=== PATIENT | male | born 1955 | race Hispanic/Latino ===

== ENCOUNTER 2019-09-03 17:25 | Inpatient (IN) | payer BC, OTHER ==
[~2019-09-03] VITALS: Ht 172.7 cm; Wt 104.1 kg
[2019-09-03 19:31] VITALS: BP 139/76
[2019-09-03] MEDS ORDERED: ALBUTEROL/IPRATROPIUM 3 ML NEB NEB PRN (19:45)
[2019-09-03] MEDS ORDERED: ACETAMINOPHEN 325 MG TAB PO PRN (19:45)
[2019-09-03] MEDS ORDERED: ONDANSETRON HCL INJ 2MG/ML 2ML 2 MG/ML VIAL IV PRN (19:45)
[2019-09-03] MEDS ORDERED: NITROGLYCERIN 0.4 MG SUBL SL PRN (20:00)
[2019-09-03] MEDS ORDERED: MORPHINE SULFATE 5 MG/ML VIAL IV PRN (20:00)
[2019-09-03 20:31] LABS: BASOPHILS # (AUTO) 0.1 (0.0-0.1); BASOPHILS % 0.5 % (0.0-1.0); EOSINOPHILS # (AUTO) 0.3 (0.0-0.4); EOSINOPHILS % 2.8 % (0.0-6.0); HEMOGLOBIN 15.9 g/dL (14.0-18.0); LYMPHOCYTES # (AUTO) 2.8 (1.0-3.2); LYMPHOCYTES % 29.4 % (18.0-39.1); MEAN CORPUSCULAR HEMOGLOBIN 29.9 pg (28-32); MEAN CORPUSCULAR HGB CONC 35.3 g/dL (31-35); MEAN CORPUSCULAR VOLUME 84.7 fL (81-99); MONOCYTES # (AUTO) 0.7 (0.2-0.8); MONOCYTES % 7.9 % (4.4-11.3); NEUTROPHILS # (AUTO) 5.6 (2.1-6.9); NEUTROPHILS % 59.1 % (38.7-80.0); PLATELET COUNT 176 x10e3/uL (140-360); RED BLOOD COUNT 5.31 x10e6/uL (4.3-5.7); RED CELL DISTRIBUTION WIDTH 12.2 % (11.7-14.4)
[2019-09-03 20:50] VITALS: BP 139/76
[2019-09-03 20:50] LABS: ANION GAP 13.5 mmol/L (8-16); BLOOD UREA NITROGEN 17 mg/dL (7-26); BUN/CREATININE RATIO 21 (6-25); CARBON DIOXIDE 25 mmol/L (22-29); CHLORIDE 100 mmol/L (98-107); CHOL/HDL RATIO 8.9 (3.9-4.7); CHOLESTEROL 232 MD/DL (0-199); CREATININE, SERUM 0.81 mg/dL (0.72-1.25); EST GLOMERULAR FILTRATION RATE > 60 ML/MIN (60-); GLUCOSE 199 mg/dL (74-118); HDL CHOLESTEROL 26 MG/DL (40-60); POTASSIUM 3.5 mmol/L (3.5-5.1); SODIUM 135 mmol/L (136-145); TRIGLYCERIDES 747 MG/DL (0-149)
--- NOTE | 2019-09-03 20:50 | NUR ---
PATIENT AMBULATED IN DIRECTLY TO HIS ROOM WITH IS AOX4, NO SIGNS OF DISTRESS NOTED. FAMILY MEMBERS ARE AT BEDSIDE AND PATIENT VOICES PAIN AT A LEVEL OF 4 IN HIS RIGHT CHEST. PATIENT CURRENTLY HAS NO IV ACCESS AND WAS TOLD THAT ONE WILL BE STARTED PROMPTLY. BED IS IN LOWEST POSITION, BOTH SIDE RAILS ARE UP, CALL LIGHT WITHIN EASY REACH, WILL CONTINUE TO MONITOR.
[2019-09-03 21:10] LABS: THYROID STIMULATING HORMONE 3.085 uIU/mL (0.350-4.940)
[2019-09-03] MEDS ORDERED: B-121000 MC1 PO (21:37)
[2019-09-03] MEDS ORDERED: GLIPIZIDE5 MG PO (21:37)
[2019-09-03] MEDS ORDERED: MONTELUKAST SOD10 MG PO (21:37)
[2019-09-03] MEDS ORDERED: ASPIRIN81 MG PO (21:37)
[2019-09-03] MEDS ORDERED: LISINOPRIL10 MG PO (21:37)
[2019-09-03] MEDS ORDERED: AMLODIPINE BESYL5 MG PO (21:37)
[2019-09-03] MEDS ORDERED: HYDROCHLOROTHIA25 MG PO (21:37)
[2019-09-03] MEDS ORDERED: ATORVASTATIN CA10 MG PO (21:37)
[2019-09-03] MEDS ORDERED: METOPROLOL TART25 MG PO (21:37)
[2019-09-03] MEDS ORDERED: ZYRTEC10 M3 PO (21:37)
[2019-09-03] MEDS ORDERED: PENTOXIFYLLINE400 MG PO (21:37)
--- NOTE | 2019-09-03 21:45 | NUR ---
PATIENT HAS 20 GAUGE IV PLACED IN LEFT AC, IT IS PATENT AND INTACT AND PATIENT VOICES NO DISCOMFORT.
[2019-09-03] MEDS ORDERED: MORPHINE SULFATE 2 MG/ML SYR 1ML IV PRN (22:00)
[2019-09-03] MEDS: METOPROLOL TARTRATE 25 MG TAB PO SCH (22:20)
[2019-09-03] MEDS: PENTOXIFYLLINE 400 MG TAB CR PO SCH (22:20)
[2019-09-03] MEDS: AMLODIPINE BESYLATE 5 MG TAB PO SCH (22:20)
[2019-09-04] VITALS (7 sets, daily range): BP systolic 151–190; BP diastolic 72–87
[2019-09-04] MEDS: ALBUTEROL/IPRATROPIUM 3 ML NEB NEB SCH ×4 (01:00→20:00)
--- NOTE | 2019-09-04 01:57 | Diagnostic Imaging Report ---
EXAM: CT Chest WITH contrast (PE Protocol) INDICATION: Dyspnea, mid chest pain COMPARISON: None TECHNIQUE: Chest was scanned utilizing a multidetector helical scanner from the lung apex through the level of the diaphragm after administration of IV contrast. Thin section reconstructions were obtained with special concentration on the pulmonary arteries. Coronal and sagittal reformations were obtained. Pulmonary embolism protocol was performed. IV CONTRAST: 100 mL of Isovue 370 COMPLICATIONS: None RADIATION DOSE: Total DLP: 570 mGy*cm Estimated effective dose: (DLP x 0.014 x size factor) mSv CTDIvol has been reviewed. It is below the limits set by the Radiation Protocol Committee (RPC). Dose modulation, iterative reconstruction, and/or weight based adjustment of the mA/kV was utilized to reduce the radiation dose to as low as reasonably achievable. FINDINGS: LINES/ TUBES: None. LUNGS AND AIRWAYS: No filling defect is identified within the pulmonary arteries to the segmental level. The lungs are unremarkable. Mild bilateral smooth central bronchial wall thickening. PLEURA: The pleural spaces are clear. HEART AND MEDIASTINUM: The thyroid gland is normal. No suspicious mediastinal, hilar or axillary lymphadenopathy. Mild prominence of bilateral hilar and mediastinal lymph nodes. The heart is normal in size. There is no pericardial effusion. Main pulmonary artery measures 2.4 cm in diameter, within normal limits, and the ascending aorta measures 3.2 cm, within normal limits. Calcifications of the aorta and major branches including the coronary arteries UPPER ABDOMEN: Unremarkable BONES: Degenerative changes in the spine. SOFT TISSUES: Unremarkable. IMPRESSION: 1. Triple vessel coronary artery calcific atherosclerosis. 2. Findings of bronchitis. No consolidations. 3. Mild prominence of hilar and mediastinal lymph nodes may be congestive or reactive. 4. No axillary mass. 5. No pulmonary emboli. Signed by: John Spain DO on 09/04/2019 1:54 AM
[2019-09-04] MEDS ORDERED: IOPAMIDOL 370 MG/ML 200 ML INFUS..BTL INJ ONE (03:09)
[2019-09-04] MEDS ORDERED: SODIUM CHLORIDE 0.9% 50ML 50 ML ONE (03:09)
[2019-09-04] MEDS ORDERED: ASPIRIN 81 MG CHEW TAB PO ONE (06:00)
[2019-09-04 06:54] LABS: CREATINE KINASE MB 2.3 ng/mL (0-5.0)
--- NOTE | 2019-09-04 07:00 | NUR ---
BEDSIDE SHIFT REPORT RECEIVED FROM NIGHT RN. PT DENIES NEEDS AT THIE TIME.
[2019-09-04] MEDS: GLIPIZIDE 5 MG TAB PO SCH (07:30)
[2019-09-04] MEDS: FAMOTIDINE 20 MG TAB PO SCH ×2 (07:30→16:45)
[2019-09-04] MEDS ORDERED: ALBUTEROL SULFATE HFA 8GM INHALATION AEROSOL INH PRN (08:00)
[2019-09-04] MEDS: HYDROCHLOROTHIAZIDE 25 MG TAB PO SCH (09:00)
[2019-09-04] MEDS: ASPIRIN 81 MG CHEW TAB PO SCH (09:00)
[2019-09-04] MEDS: PENTOXIFYLLINE 400 MG TAB CR PO SCH ×2 (09:00→16:45)
[2019-09-04] MEDS: LISINOPRIL 10 MG TAB PO SCH (09:00)
[2019-09-04] MEDS: METOPROLOL TARTRATE 25 MG TAB PO SCH ×2 (09:00→16:46)
--- NOTE | 2019-09-04 09:39 | Consultation ---
DATE OF CONSULTATION: 09/04/2019 Pulmonary Critical Care Consultation CHIEF COMPLAINT: Chest pain and possible neck mass. HISTORY OF PRESENT ILLNESS: The patient is a 63-year-old man. He has a history of intermittent sharp chest pain for about 8 months. He attributes this to installing the ceiling fan several months ago. He went to see the gasoline pump installer as an outpatient and was felt to have some swelling in the right axillary and neck area. He was subsequently admitted and seen by General Surgery. General Surgery felt there was a right neck mass and ordered a CT scan of the neck. PAST MEDICAL HISTORY: 1. Hypertension. 2. Diabetes. PAST SURGICAL HISTORY: 1. Prior left facial surgery. 2. Prior surgery on the right hand. FAMILY HISTORY: History of cancer as well as there is a cerebrovascular accident. SOCIAL HISTORY: The patient smokes about 1 pack a day. He is not a drinker. ALLERGIES: THE PATIENT HAS NO KNOWN DRUG ALLERGIES. REVIEW OF SYSTEMS: The patient is afebrile. The patient does not complain of headache. He does have some swelling in his neck and axillary area. He reports some left-sided chest pain. He has no difficulty breathing. He does not complain of cough. He does not have abdominal pain. He has no nausea or vomiting. PHYSICAL EXAMINATION: VITAL SIGNS: The patient is afebrile. The blood pressure is 188/87 and the saturation is 96%. The pulse is 71. HEENT: Shows no facial swelling or erythema. LYMPHATIC: Shows some possible swelling in the right neck. CARDIAC: Reveals regular rate and rhythm with normal S1, S2. LUNGS: Auscultation of lungs reveals prolonged expiratory phase. There is no wheezing. ABDOMEN: Soft, nontender. There is no rebound or guarding. EXTREMITIES: Show no leg edema or calf tenderness. There is no cyanosis or clubbing. SKIN: Shows no rashes. NEUROLOGICAL: Shows no focal abnormalities. LABORATORY DATA: BUN and creatinine are normal. The other electrolytes are within normal limits. The blood sugar is 266. The white blood cell count is 9.4 and hemoglobin is 15.9. The platelet count is 176. CT scan of the chest shows triple-vessel coronary artery calcification as well as some mild mediastinal lymph node prominence. IMPRESSION: 1. Chronic obstructive pulmonary disease with exacerbation. 2. Chest pain. 3. Right neck mass. 4. Diabetes. 5. Hypertension. PLAN: 1. The patient is scheduled for a CT scan of the neck today. 2. He is scheduled for an echocardiogram and stress test. 3. The patient will begin bronchodilators, including Spiriva in the morning and the rescue inhaler as needed. MD ROBY Bueno/MISTY /[id number]
[2019-09-04] MEDS ORDERED: REGADENOSON 0.4 MG/5 ML SYR IV ONE (09:59)
[2019-09-04] MEDS: TIOTROPIUM 18 MCG INH POWDER INH SCH (10:00)
--- NOTE | 2019-09-04 10:54 | Consultation ---
DATE OF CONSULTATION: 09/04/2019 HISTORY OF PRESENT ILLNESS: The patient is a 63-year-old male, who sent to the emergency room by his waiter/waitress economy class. He complains of chest pain. The patient complains of pain in the right chest and axilla. He says he has had it for several months after he developed pain after installing a ceiling fan. He says he noticed some swelling in this area. He has been evaluated with CT of the chest, which was negative for pulmonary embolus and no mass was seen in the axilla. The patient says the pain is intermittent in the right axilla. He also was found to have mass in the neck. He apparently had surgery on the left neck, removal of a mass or salivary gland several years ago, which he was told was benign, but he has a mass in the right neck. 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 ALLERGIES: HE HAS NO KNOWN ALLERGIES. MEDICATIONS: Listed in the chart. FAMILY HISTORY: Significant for diabetes and cancer in his family. SOCIAL HISTORY: The patient smokes cigarettes, one pack per day. Does not drink alcohol. REVIEW OF SYSTEMS: As stated above. He has had no fever, no weight loss. PHYSICAL EXAMINATION: GENERAL: The patient is awake and alert, in no distress. VITAL SIGNS: Normal. HEENT: Sclerae is nonicteric. NECK: There is a mass in the right neck, which is mobile, nontender, seen to be arising from just below the right parotid area and it is about 4 x 6 cm. LUNGS: Equal breath sounds are clear bilaterally. In the axilla on the right side, there was no discrete mass palpable. CARDIAC: Regular rate and rhythm with no murmur. ABDOMEN: Soft. There is no tenderness. No mass. No organomegaly. EXTREMITIES: Have no edema. NEUROLOGIC: Grossly intact. LABORATORY DATA: White blood cell count was normal. Hemoglobin and hematocrit are normal. Chemistries, elevated triglycerides and cholesterol. Cardiac enzymes thus far are negative. BUN and creatinine are normal. ASSESSMENT: A 63-year-old male with pain in the right chest and axillary area for several months. There is no discrete mass that I can feel on palpation and no mass was seen on CT scan. It is possible the patient has a muscle strain that is taking a prolonged time to heal. The patient does have a right neck mass. Apparently, he previously had a left neck mass, which was excised, which he was told was benign. Apparently, he evaluated further with a CT scan of the neck with contrast. There are no findings that would warrant immediate surgical intervention. Thank you for asking me to see Mr. Landry. MD KRYSTA Solorzano/MISTY /[id number]
--- NOTE | 2019-09-04 12:50 | Consultation ---
DATE OF CONSULTATION: 09/04/2019 Cardiology Consult Mr. Uvaldo Landry is a 63-year-old male with primary history of hypertension, hyperlipidemia, diabetes type 2, admitted to ED, complaining of substernal intermittent sharp chest pain that began about 8 months ago while he was installing his ceiling fan. However, three months ago, it started to become constant, experiencing daily pain and he takes Advil that relieves the pain. The patient reports there are no accompanying symptoms. Denies nausea, vomiting, dizziness, palpitations, or dyspnea. The patient also complain of right axillary and right submandibular mass. PAST MEDICAL HISTORY: As mentioned above, hypertension, hyperlipidemia, diabetes type 2, and left submandibular mass operated 8 years ago. FAMILY HISTORY: Dad has diabetes and cancer. Aunt also has CVA. SOCIAL HISTORY: The patient is an active smoker, one pack of cigarettes per day. MEDICATIONS: The patient is taking amlodipine, metoprolol, lisinopril, aspirin, hydrochlorothiazide, and atorvastatin at home. ALLERGIES: NO KNOWN ALLERGIES. PHYSICAL EXAMINATION: VITAL SIGNS: Blood pressure 188/87, the temperature is 96.4, pulse is 71, SpO2 96% on room air, 18 respirations. GENERAL: The patient is well developed, well nourished, no acute respiratory distress. SKIN: Normal in appearance, texture, and temperature. Warm and dry. HEENT: The patient's cranium is normocephalic, atraumatic. The pupils are equally round and reactive to light. Sclerae are nonicteric. Ears are normal. Mucosa is moist. Throat is clear. NECK: Right side of the neck submandibular mass noted. Neck is of full range of motion. No thyromegaly. No JVD. RESPIRATORY: Normal respiratory effort. LUNGS: Clear to auscultation bilaterally. No wheezing, no rhonchi, rales or rubs. CARDIOVASCULAR: S1, S2 audible. Regular rate and rhythm. GASTROINTESTINAL: Soft, nontender, nondistended. Bowel sounds are present. EXTREMITIES: No cyanosis, no edema. Right axillary area has limited range of motion with the swelling noted on the axillary area. There is tenderness with palpation. NEUROVASCULAR: Motor is intact. Pulses are palpable 2+ throughout. NEUROLOGIC: Motor and sensory examination of the upper and lower extremities is normal. Reflexes are normal and symmetrical bilaterally. IMPRESSION AND PLAN: 1. Atypical chest pain. EKG shows LV hypertrophy and we will do an echocardiogram and Lexiscan nuclear stress testing to evaluate ischemia. 2. Known history of hypertension, hyperlipidemia, and diabetes. Continue home doses of beta-katty, OLIVIA inhibitor, amlodipine, aspirin, hydrochlorothiazide, and atorvastatin. Further cardiac workup depending on clinical course. Thank you for this consultation. We will continue to follow. Dictated by Izabel Ashraf, ARELIS MD SUNNI Mendoza/MISTY /[id number]
[2019-09-04 15:04] LABS: CREATINE KINASE MB 1.8 ng/mL (0-5.0)
[2019-09-04] MEDS ORDERED: DEXTROSE 50% SYRINGE 50 ML IV PRN (17:45)
--- NOTE | 2019-09-04 20:12 | Operative Report ---
DATE OF PROCEDURE: SURGEON: Irving Valadez MD PROCEDURE: Lexiscan nuclear stress test. INDICATION: Chest pain. TECHNIQUE: The patient was given 11 mCi of Myoview. Resting images were obtained in the horizontal long axis, vertical long axis, and short axis. The patient was then hooked up to the EKG machine. Lexiscan was infused over 15 seconds immediately after Lexiscan infusion. The patient was given 31.5 millicuries of Myoview. Stress images were obtained in the horizontal long axis, vertical long axis, and short axis. Results are follows: 1. The resting EKG demonstrated normal sinus rhythm with a left ventricular hypertrophy. 2. There were no EKG changes and no symptoms during Lexiscan infusion. 3. There was normal perfusion to all segments of the myocardium in both stress and rest. 4. There was normal left ventricular size and function with an ejection fraction of 52%. CONCLUSION: Normal Lexiscan nuclear stress test. Irving Valadez MD [facility]/MODL /[id number] cc: Theodore Eduardo MD
[2019-09-04] MEDS ORDERED: ATORVASTATIN 10 MG TAB PO SCH (21:00)
[2019-09-04] MEDS: AMLODIPINE BESYLATE 5 MG TAB PO SCH (21:20)
[2019-09-04] MEDS: INSULIN LISPRO 100 UNIT/1 ML 3ML VIAL SQ SCH (21:20)
--- NOTE | 2019-09-04 21:20 | NUR ---
PATIENT IS AOX4, NO SIGNS OF DISTRESS NOTED. FAMILY MEMBERS ARE AT BEDSIDE AND PATIENT VOICES NO PAIN AT THIS TIME. PATIENT'S BLOOD SUGAR WAS HIGHLY ELEVATED AT 317 AND WAS MEDICATED PROMPTLY ORDERED. BED IS IN LOWEST POSITION, BOTH SIDE RAILS ARE UP, CALL LIGHT WITHIN EASY REACH, WILL CONTINUE TO MONITOR.
[2019-09-05] VITALS: BP 177/82
[2019-09-05] MEDS: HYDRALAZINE HCL 20 MG/ML VIAL IV PRN ×2 (00:34→06:12)
[2019-09-05] MEDS: ALBUTEROL/IPRATROPIUM 3 ML NEB NEB SCH ×3 (01:03→13:15)
--- NOTE | 2019-09-05 01:08 | NUR ---
RADIOLOGY HAS COME TO PICK THE PATIENT UP FOR CT SCAN.
[2019-09-05] MEDS ORDERED: IOPAMIDOL 370 MG/ML 200 ML INFUS..BTL INJ ONE (01:10)
[2019-09-05] MEDS ORDERED: SODIUM CHLORIDE 0.9% 50ML 50 ML ONE (01:10)
--- NOTE | 2019-09-05 02:18 | Diagnostic Imaging Report ---
History: Right neck mass. Comparison studies: None Technique: Axial, coronal and sagittal images from the skull base to the thoracic inlet. Coronal and sagittal images reconstructed from the axial data. Dose modulation, iterative reconstruction, and/or weight based adjustment of the mA/kV was utilized to reduce the radiation dose to as low as reasonably achievable. Intravenous contrast: 100 cc of Isovue 300. Findings: Soft tissues: No abnormalities. Lymph nodes: Heterogeneous, enlarged lymph node with areas of necrosis that approximately measures 4.8 cm in long axis in right level 2A. Multiple right intraparotid and periparotid lymph nodes. Small subcentimeter, prominent nonnecrotic lymph nodes along the peripheral margin of left parotid gland approximately measures 0.8 cm in long axis and 0.7 cm in long axis. Enlarged right pretracheal lymph node measures 1.1 cm in long axis. Vessels: Atherosclerotic calcification in bilateral carotid bulb. Poor visualization of the distal right V4 segment of the vertebral artery near the confluence may represent severe stenosis due to soft atherosclerotic plaque or age indeterminate occlusion. Glands (thyroid, parotid and submandibular): 6.6 mm centrally necrotic and peripherally enhancing lesion in the superior aspect of the superficial lobe of right parotid gland with adjacent smaller subcentimeter, round homogeneously hyperdense lesion along the superior margin of right parotid gland. Larger heterogeneously enhancing, oval-shaped lesion that approximately measures 5.2 cm in long axis along the posterior margin of the superficial lobe of right parotid gland. Thyroid, bilateral submandibular and left parotid gland are normal in size and symmetric. No masses. Orbits: No abnormalities. Paranasal sinuses: Mild mucosal thickening in right posterior ethmoid sinus. Temporal bones: Complete opacification of left mastoid air cells and partial opacification of left middle ear. Skull base and facial bones: Intact. Cervical spine: Posterior disc osteophyte complex at level C5-C6 and C6-C7 results in mild canal stenosis. No significant foraminal stenosis. Multilevel degenerative disc disease. IMPRESSION: 1. Multiple predominantly right intraparotid and periparotid enlarged lymph nodes. 5.2 cm heterogeneously enhancing lesion along the posterior margin of the superficial lobe of right parotid gland may either represent another enlarged lymph node or represent an intraparotid neoplasm. 2. A 4.8 cm partially necrotic, heterogeneous right level 2A lymph nodes. 3. Few, prominent subcentimeter left parotid lymph nodes. 4. A 1.1 cm right pretracheal lymph node. 5. Complete opacification of left mastoid air cells and middle ear may represent otomastoiditis in appropriate clinical setting. Signed by: Dr. Marley Ramon M.D. on 09/05/2019 2:15 AM
[2019-09-05 02:21] LABS: BASOPHILS % 0.5 % (0.0-1.0); EOSINOPHILS # (AUTO) 0.2 (0.0-0.4); EOSINOPHILS % 2.3 % (0.0-6.0); HEMATOCRIT 42.8 % (38.2-49.6); HEMOGLOBIN 15.3 g/dL (14.0-18.0); LYMPHOCYTES # (AUTO) 2.8 (1.0-3.2); LYMPHOCYTES % 33.5 % (18.0-39.1); MEAN CORPUSCULAR HEMOGLOBIN 29.9 pg (28-32); MEAN CORPUSCULAR HGB CONC 35.7 g/dL (31-35); MEAN CORPUSCULAR VOLUME 83.6 fL (81-99); MONOCYTES # (AUTO) 0.6 (0.2-0.8); MONOCYTES % 7.4 % (4.4-11.3); NEUTROPHILS # (AUTO) 4.6 (2.1-6.9); NEUTROPHILS % 55.8 % (38.7-80.0); PLATELET COUNT 155 x10e3/uL (140-360); RED BLOOD COUNT 5.12 x10e6/uL (4.3-5.7)
[2019-09-05 02:36] LABS: ANION GAP 18.2 mmol/L (8-16); BLOOD UREA NITROGEN 13 mg/dL (7-26); CALCIUM 8.4 mg/dL (8.4-10.2); CARBON DIOXIDE 18 mmol/L (22-29); CHLORIDE 105 mmol/L (98-107); GLUCOSE 236 mg/dL (74-118); POTASSIUM 3.2 mmol/L (3.5-5.1); SODIUM 138 mmol/L (136-145)
[2019-09-05 04:00] VITALS: BP 180/81
[2019-09-05 04:13] LABS: BUN/CREATININE RATIO 18 (6-25); CREATININE, SERUM 0.74 mg/dL (0.72-1.25); EST GLOMERULAR FILTRATION RATE > 60 ML/MIN (60-)
[2019-09-05] MEDS ORDERED: LIPITOR10 MG PO (06:16)
[2019-09-05] MEDS ORDERED: TRICOR48 MG PO (06:16)
[2019-09-05] MEDS ORDERED: POTASSIUM CHLORIDE 20 MEQ TAB CR PO ONE ×2 (06:30→09:30)
--- NOTE | 2019-09-05 06:50 | NUR ---
BEDSIDE SHIFT REPORT RECEIVED FROM [employer] READING TEACHER RN, PT AWAKE, ALERT, NO SIGNS OF DISTRESS. NO COMPLAINTS AT THIS TIME. WILL CONTINUE TO MONITOR.
[2019-09-05 07:48] VITALS: BP 180/81
[2019-09-05 08:00] VITALS: BP 177/82
[2019-09-05] MEDS: INSULIN LISPRO 100 UNIT/1 ML 3ML VIAL SQ SCH ×2 (08:45→11:30)
[2019-09-05] MEDS: ASPIRIN 81 MG CHEW TAB PO SCH (09:00)
[2019-09-05 09:04] LABS: INR 0.85; PROTHROMBIN TIME 12.1 seconds (11.9-14.5)
[2019-09-05 09:05] LABS: PARTIAL THROMBOPLASTIN TIME 27.9 seconds (23.8-35.5)
[2019-09-05] MEDS ORDERED: AMLODIPINE BESYLATE 10 MG TAB PO SCH (09:30)
[2019-09-05] MEDS: TIOTROPIUM 18 MCG INH POWDER INH SCH (09:36)
[2019-09-05] MEDS: FAMOTIDINE 20 MG TAB PO SCH (09:45)
[2019-09-05] MEDS: GLIPIZIDE 5 MG TAB PO SCH (09:45)
[2019-09-05] MEDS: HYDROCHLOROTHIAZIDE 25 MG TAB PO SCH (09:46)
[2019-09-05] MEDS: LISINOPRIL 10 MG TAB PO SCH (09:47)
[2019-09-05] MEDS: PENTOXIFYLLINE 400 MG TAB CR PO SCH (09:47)
[2019-09-05] MEDS: METOPROLOL TARTRATE 25 MG TAB PO SCH (09:47)
[2019-09-05 12:00] VITALS: BP 150/75
--- NOTE | 2019-09-05 14:03 | Diagnostic Imaging Report ---
Ultrasound guided parotid FNA. History: right parotid mass. Comparison: CT neck 09/05/2019. EBL: < 5 cc. Specimen: 6 FNA samples given to pathology. Discussion: Transverse and longitudinal images of the right parotid were obtained demonstrating a 4.6 cm heterogeneous solid mass in the right parotid region. After informed consent was obtained, the patient's neck was prepped and draped in a sterile fashion. The skin was anesthetized with 1% lidocaine without epinephrine. Using ultrasound guidance, the lesion was aspirated using 6 25-gauge needles. Samples were given to pathology who confirmed adequacy. The patient tolerated procedure well without evidence of immediate complication. IMPRESSION: Successful ultrasound guided right parotid mass fine needle aspiration. Signed by: Kedar Alcaraz on 09/05/2019 2:01 PM
--- NOTE | 2019-09-06 03:53 | Discharge Summary ---
ADMISSION DIAGNOSES: Chest pain, right axillary and right neck mass, hypertension, hyperlipidemia, obesity with a body mass index of 35, and type 2 diabetes. DISCHARGE DIAGNOSES: Chest pain, right axillary and right neck mass, hypertension, hyperlipidemia, obesity with a body mass index of 35, type 2 diabetes, and rule out myocardial infarction. HISTORY: Hypertension, hyperlipidemia, and type 2 diabetes. PAST SURGICAL HISTORY: Partial right index finger amputation, left facial surgery for removal of neck mass, and left hand surgery. FAMILY HISTORY: The patient's father had diabetes. The patient's aunt had cancer and a stroke. SOCIAL HISTORY: The patient admits to smoking 1 pack of cigarettes a day. HOSPITAL COURSE: A 63-year-old male admits with complaints of substernal intermittent sharp chest pain that began 8 months ago while installing a ceiling fan. Three months ago, the pain became constant. He denies shortness of breath, diaphoresis, or dizziness. He has a mass on his right axilla and right neck and it is tender at times. On admission, troponins were done, which were negative. CT of the chest was done, which showed triple-vessel coronary artery calcific atherosclerosis. Findings of bronchitis with no consolidation. No axillary mass. No pulmonary emboli. CT of the soft tissue of the neck showed multiple predominantly right intraparotid and periparotid enlarged lymph nodes. 5.2 cm lesion along the posterior margin of the superficial lobe of the right parotid gland. 4.8 cm partially necrotic right level 2a lymph node. Few prominent subcentimeter left parotid lymph nodes. A 1.1 cm right pretracheal lymph node. Echo showed an EF of 55%. The patient underwent a stress test, which was negative. Surgery was consulted, who did not think the patient had a right axillary palpable mass and ordered a biopsy of the right neck mass. He will follow up with Surgery in 1 to 2 weeks for the biopsy findings. TSH was within normal limits. A1c was 8.2%. Triglyceride was 747 and cholesterol was 232. The patient will discharge home with new prescriptions for increase Lipitor and fenofibrate. He will resume all other home medicines. Surgery and Cardiology have cleared the patient for discharge. He will follow up with Surgery in 1 to 2 weeks and primary care in 1 to 2 weeks. The patient understands discharge instructions and agrees to plan. Dictated by Bethanie M Musa, TERRAZZO WORKER APPRENTICE MD KATHE Paez/MISTY /[id number]
--- NOTE | 2019-09-22 20:55 | EXERCISE STRESS TEST ---
DATE OF STUDY: 09/04/2019 07:00:00 Stress Test - Treadmill ONLY PROCEDURE: Lexiscan nuclear stress test. INDICATION: Chest pain. TECHNIQUE: The patient was given 11 mCi of Myoview. Resting images were obtained in the horizontal long axis, vertical long axis, and short axis. The patient was then hooked up to the EKG machine. Lexiscan was infused over 15 seconds immediately after Lexiscan infusion. The patient was given 31.5 millicuries of Myoview. Stress images were obtained in the horizontal long axis, vertical long axis, and short axis. Results are follows: 1. The resting EKG demonstrated normal sinus rhythm with a left ventricular hypertrophy. 2. There were no EKG changes and no symptoms during Lexiscan infusion. 3. There was normal perfusion to all segments of the myocardium in both stress and rest. 4. There was normal left ventricular size and function with an ejection fraction of 52%. CONCLUSION: Normal Lexiscan nuclear stress test. Irving Valadez MD [facility]/MODL /[id number]
== END 2019-09-05 14:45 | disposition home or self-care (01) | DRG 155 ==
LOC: MED/SURG3 19:18
PROVIDERS: ADMIT Internal Medicine; ATTEND Internal Medicine
PROC: 0J943ZX Drainage of Right Neck Subcutaneous Tissue and Fascia, Percutaneous Approach, Diagnostic (ICD-10-PCS; principal; 2019-09-05)
DX: D11.0 Benign neoplasm of parotid gland (principal); J44.1 Chronic obstructive pulmonary disease with (acute) exacerbation; R07.89 Other chest pain; I10 Essential (primary) hypertension; E78.5 Hyperlipidemia, unspecified; E66.9 Obesity, unspecified; Z68.35 Body mass index [BMI] 35.0-35.9, adult; E11.9 Type 2 diabetes mellitus without complications; Z83.3 Family history of diabetes mellitus; Z82.3 Family history of stroke; Z80.9 Family history of malignant neoplasm, unspecified; F17.210 Nicotine dependence, cigarettes, uncomplicated; Z79.84 Long term (current) use of oral hypoglycemic drugs
CPT/HCPCS: 10005; 36415; 70491; 71260; 74470; 78452; 80048; 80061; 82550; 82553; 82948; 83036; 83735; 84443; 84484; 85025; 85610; 85730; 88172; 88173; 88305; 93017; 93306; 93880; 94640; A9502; J0360; Q9967

== ENCOUNTER → 2021-12-02 | Day surgery (SDC) | payer OTHER ==
[~2021-12-02] MED LIST: AMLODIPINE BESYL5 MG PO; ASPIRIN81 MG PO; ATORVASTATIN CA10 MG PO; B-121000 MC1 PO; EPHEDRINE SULFATE INJ 50 MG/ML VIAL ONE; FENOFIBRATE145 MG PO; FENTANYL CITRATE/PF 100MCG/2 ML INJ ONE; FOLIC ACID0.4 MG PO; GLIPIZIDE5 MG PO; HYDROCHLOROTHIA25 MG PO; HYOSCYAMINE SULFATE 0.5 MG/ML INJ ONE; LIPITOR10 MG PO; LISINOPRIL-HCT1 EACH PO; LISINOPRIL10 MG PO; METOPROLOL TART25 MG PO; MIDAZOLAM HCL 2 MG/2 ML VIAL ONE; MONTELUKAST SOD10 MG PO; PENTOXIFYLLINE400 MG PO; PROPOFOL IV EMULSION 10 MG/ML 20 ML VIAL ONE; SYNJARDY XR 5-1 EACH PO; TRICOR48 MG PO; TRULICITY0.75 MG/0. SC; VIT B12 PO; VIT D2 PO; ZYRTEC10 M3 PO
[2021-12-02 16:25] VITALS: BP 138/72
== END | disposition home or self-care (01) ==
LOC: OR 12:05
PROVIDERS: ATTEND Internal Medicine Gastroenterology
DX: Z12.11 Encounter for screening for malignant neoplasm of colon (principal); C7A.026 Malignant carcinoid tumor of the rectum; D12.2 Benign neoplasm of ascending colon; D12.8 Benign neoplasm of rectum; K63.89 Other specified diseases of intestine; K64.8 Other hemorrhoids; Z71.3 Dietary counseling and surveillance; G47.33 Obstructive sleep apnea (adult) (pediatric); E78.00 Pure hypercholesterolemia, unspecified; I10 Essential (primary) hypertension; E11.9 Type 2 diabetes mellitus without complications; F17.210 Nicotine dependence, cigarettes, uncomplicated; Z71.89 Other specified counseling; Z01.810 Encounter for preprocedural cardiovascular examination; Z01.812 Encounter for preprocedural laboratory examination; Z20.822 Contact with and (suspected) exposure to COVID-19; Z79.84 Long term (current) use of oral hypoglycemic drugs; Z79.82 Long term (current) use of aspirin; Z79.899 Other long term (current) drug therapy; Z68.32 Body mass index [BMI] 32.0-32.9, adult
CPT/HCPCS: 36415; 45380; 45385; 82948; 93005; J1980; J2250; J2704; J3010; U0002; 45378

== ENCOUNTER → 2021-12-23 | Day surgery (SDC) | payer OTHER ==
[2021-12-22 10:10] LABS: BASOPHILS # (AUTO) 0.1 (0.0-0.1); BASOPHILS % 0.6 % (0.0-1.0); EOSINOPHILS # (AUTO) 0.3 (0.0-0.4); EOSINOPHILS % 3.4 % (0.0-6.0); HEMOGLOBIN 16.3 g/dL (14.0-18.0); LYMPHOCYTES # (AUTO) 2.6 (1.0-3.2); LYMPHOCYTES % 30.7 % (18.0-39.1); MEAN CORPUSCULAR HEMOGLOBIN 30.9 pg (28-32); MEAN CORPUSCULAR HGB CONC 35.4 g/dL (31-35); MEAN CORPUSCULAR VOLUME 87.1 fL (81-99); MONOCYTES # (AUTO) 0.5 (0.2-0.8); MONOCYTES % 6.2 % (4.4-11.3); NEUTROPHILS % 58.6 % (38.7-80.0); PLATELET COUNT 180 x10e3/uL (140-360); RED BLOOD COUNT 5.28 x10e6/uL (4.3-5.7); RED CELL DISTRIBUTION WIDTH 12.4 % (11.7-14.4)
[~2021-12-23] MED LIST changes: -HYOSCYAMINE SULFATE 0.5 MG/ML INJ ONE
[2021-12-23 08:50] VITALS: BP 135/69
== END | disposition home or self-care (01) ==
LOC: OR 06:29
PROVIDERS: ATTEND Internal Medicine Gastroenterology
DX: D3A.8 Other benign neuroendocrine tumors (principal); Z86.010 Personal history of colon polyps; K64.8 Other hemorrhoids; Z71.3 Dietary counseling and surveillance; G47.33 Obstructive sleep apnea (adult) (pediatric); E11.9 Type 2 diabetes mellitus without complications; Z71.89 Other specified counseling; I10 Essential (primary) hypertension; E78.00 Pure hypercholesterolemia, unspecified; F17.210 Nicotine dependence, cigarettes, uncomplicated; Z01.812 Encounter for preprocedural laboratory examination; Z20.822 Contact with and (suspected) exposure to COVID-19; Z79.82 Long term (current) use of aspirin; Z79.899 Other long term (current) drug therapy; Z68.32 Body mass index [BMI] 32.0-32.9, adult
CPT/HCPCS: 36415 ×2; 45331; 45335; 82948; 85025; J2250; J2704; J3010; U0002; 45330